=== PATIENT | female | born 1960 | race Caucasian/White ===

== ENCOUNTER 2016-09-12 21:38 | Emergency (ER) | payer MEDICARE | END 2016-09-12 22:15 | disposition left against medical advice (07) | LOC: ER1 21:38 | DX: Z53.21 Procedure and treatment not carried out due to patient leaving prior to being seen by health care provider (principal) ==

== ENCOUNTER 2016-09-14 10:27 | Emergency (ER) | payer MEDICARE ==
[2016-09-14 12:01] LABS: BUN/CREATININE RATIO 13 (0-10)
== END 2016-09-14 13:50 | disposition home or self-care (01) ==
LOC: ER1 10:27
PROVIDERS: Emergency Medicine
DX: I80.01 Phlebitis and thrombophlebitis of superficial vessels of right lower extremity (principal); I10 Essential (primary) hypertension; F41.9 Anxiety disorder, unspecified; Z79.899 Other long term (current) drug therapy
CPT/HCPCS: 72170; 73564; 73590; 80048; 83735; 85610; 85730; 93971; 99284